=== PATIENT | female | born 1965 | race Hispanic/Latino ===

== ENCOUNTER 2019-12-26 08:34 | Day surgery (SDC) | payer BC ==
--- NOTE | 2019-12-23 08:46 | RAD REPORT ---
EXAM DESCRIPTION: RAD - Chest Pa And Lat (2 Views) - 12/23/2019 8:30 am CLINICAL HISTORY: pre op Chest pain. COMPARISON: CHEST PA AND LAT 2 VIEW dated 01/18/2013 FINDINGS: The lungs are clear. The heart is normal in size. No displaced fractures. IMPRESSION: No acute or concerning finding suspected.
[2019-12-23 11:15] LABS: Basophils % 0.8 % (0-1.3); Hematocrit 36.2 % (36.0-45.0); Lymphocytes % 29.9 % (15.3-44.8); MPV 8.1 fL (7.6-11.3); RBC Red Blood Cell Count 3.93 M/uL (3.86-4.86)
[2019-12-23 11:32] LABS: Potassium 4.4 mmol/L (3.5-5.1)
--- NOTE | 2019-12-25 07:52 | EKG ---
Test Date: 2019-12-23 Test Time: 08:34:15 Combination Window Installer: TG MEASUREMENT RESULTS: Intervals: Rate: 75 MO: 178 QRSD: 66 QT: 366 QTc: 408 [place]: P: 70 MO: 178 QRS: 52 T: 55 INTERPRETIVE STATEMENTS: Normal sinus rhythm Septal infarct, age undetermined Abnormal ECG Compared to ECG 07/30/1999 08:10:00 Myocardial infarct finding now present Electronically Signed On 12-25-19 07:49:47 CDT by Jason Ambrosio
[2019-12-26] MEDS ORDERED: CEFAZOLIN/SWI 1gm 1 GM/10 ML SYR ONE (10:11)
[2019-12-26] MEDS ORDERED: propofoL 200 MG/20 ML VIAL IV ONE (10:23)
[2019-12-26] MEDS ORDERED: LIDOCAINE 1% MPF 5 ML VIAL ONE (10:23)
[2019-12-26] MEDS ORDERED: FENTANYL CITR 100 MCG/2 ML ONE (10:23)
[2019-12-26] MEDS ORDERED: MIDAZOLAM HCL 2 MG/2 ML INJ ONE (10:23)
[2019-12-26] MEDS ORDERED: KETOROLAC 30 MG/ML INJ ONE (10:41)
[2019-12-26] MEDS ORDERED: dexAMETHasone 10 MG/ML VIAL ONE (10:41)
[2019-12-26] MEDS ORDERED: ONDANSETRON 4 MG/2 ML VIAL ONE (10:45)
[2019-12-26] MEDS ORDERED: Ringers Lactate 1,000 ML IV ONE (11:02)
[2019-12-26] MEDS ORDERED: CODEINE 30MG/APAP 300MG TAB ONE (12:54)
[2019-12-26 14:04] VITALS: BP 103/61; TEMP 97.7; O2SAT 100
[2019-12-26 14:10] LABS: Specific Gravity 1.025 (1.005-1.030)
--- NOTE | 2019-12-26 21:43 | OP ---
Date of Procedure: 12/26/2019 Surgeon: Julian Ladd MD Preoperative Diagnosis: Tender left axillary mass. Postoperative Diagnosis: Tender left axillary mass. Procedure: Excisional biopsy of tender left axillary mass, needle localized. Anesthesia: General plus local. Indications: This is a case of a 54-year-old patient with a tender actually mass. The margins canno t be clearly defined, so we asked the children's nursery assistant from the radiologist. This morning, she went under u ltrasound guidance and have localization of the mass in concern by the radiologist. The patient was brought to the OR protecting the needle all time. The benefits, alternatives, and risks of excisiona l biopsy of axillary mass were fully explained to the patient which include, but not limited to infec tion, bleeding, damage to adjacent structures, anesthesia complication, nonhealing wound, ME, and autumn n . She also understands this may not relieve the symptoms. She might need more than one surgi breanna intervention. She understood and signed a consent. Procedure In Detail: Like I mentioned before, the patient came this morning to the Radiology suite, from there taken to recovery room, protecting the needle all time, and then the patient was brought t o the operating room, placed supine position, anesthesia was done without complication. Left axillar y area was prepped and draped in a sterile fashion making sure the needle remains intact. At that mo ment, I proceeded to carefully after time-out was done make an incision on the left axillary region. Incision was carried down to subcutaneous tissue. We held the needle and the needle guidewire and t he mass with an Allis, and then we proceeded to remove the lump that this is delineating, which is co nfirmed, they palpated one too. The area was irrigated. Hemostasis was obtained. Then, we closed t his with subcutaneous 3-0 chromic in the layers and then skin with anais. Sponge counts and instru ment counts were correct. The patient tolerated the procedure well. The specimen with needle was se nt to the pathologist. The patient was sent to Recovery in stable condition. Disposition: Home. Activity: As tolerated. No heavy lifting. Plan: Follow up in my office in 1 week. Call for appointment [phone]. Keep area dry for 48 hours, then may shower. Keep anais intact. May use some triple antibiotics after that. Medications: Bactrim DS p.o. b.i.d. and Tylenol No. 3 q.4 hours p.r.n. pain. NADIA/ERIKA Voice ID: [id number] Report ID: [id number]
--- NOTE | 2019-12-27 12:44 | RAD REPORT ---
EXAM DESCRIPTION: US - Brst,Preop NL Wire Init w/Guid - 12/26/2019 1:58 pm CLINICAL HISTORY: N Left axillary palpable lesion. Preoperative wire localization COMPARISON: BREAST/AXILLA, COMPLETE dated 05/02/2019 FINDINGS: Preoperative diagnosis: 2 cm palpable lesion left axilla.. Post operative diagnosis: Same. Conscious Sedation: None Fluoroscopy time: None Contrast used: None Estimated blood loss: Minimal The left axilla was prepped and draped in the usual sterile fashion. 1% lidocaine was infiltrated int o the subcutaneous tissues for local anesthesia. Real time ultrasound scanning of the left axilla dem onstrated 2 cm hypoechoic palpable lesion. Under ultrasound guidance, preoperative Kopan's hook wire was placed into the lesion. There were no complications. Procedure was discussed with Dr. Ladd. IMPRESSION: Successful preoperative wire localization of palpable lesion left axilla.
== END 2019-12-26 13:25 | disposition home or self-care (01) ==
LOC: OR 08:34
PROVIDERS: ATTEND Surgery
PROC: 0JBF0ZX Excision of Left Upper Arm Subcutaneous Tissue and Fascia, Open Approach, Diagnostic (ICD-10-PCS; principal; 2019-12-26 10:15)
DX: R22.2 Localized swelling, mass and lump, trunk (principal)
CPT/HCPCS: 93005; 85025; 80048; 36415; 84703; 81025; 88304; 71046; 19285; 11403; 12032; U0002; J2704; J2250; J3010; J1100; J0690; J7120; J2405; 88305

== ENCOUNTER → 2023-06-23 | Emergency (ER) | payer BC ==
[~2023-06-23] MED LIST: MECLIZINE HCL 12.5 MG TAB ONE
--- OUTSIDE RECORDS SUMMARY | 2023-06-23 15:14 | XMS REPORT | Continuity of Care Document ---
Author Name Unknown Address [address] [facility] [address] th[address] Address [address] [facility] [address] [place] [address] Care Team Providers Care Project Estimator Name Role Phone [email or web address] Attending Clinician GAYATRI Gottlieb Attending Clinician ZENON Oshea Attending Clinician Unavailable [email or web address] Admitting Clinician Reynaldo cervantes Payers Payer Name Policy Type Policy Number Effective Date Expirati on Date Source [facility] FED [employer] [id number] 1995 00:00:00 Allergies, Adverse Reactions, Alerts Allergy Name Allergy Type Status Severity Reaction(s) Onset Date Inactive Date Treating Clinician Comments Source NO KNOWN ALLERGIE S Drug Class Active [facility] Encounters Start Date/Time End Date/Time Encounter Type Admission Type Attending Clinicians Care Facility Care Department Encounter ID Source 2023-03-17 00:00:00 2023-03-17 00:00:00 Outpatient [email or web address] [email or web address] PRIV PRIV [id number] [facility] 2023-03-16 00:00:00 2023-03-16 00:00:00 Outpatient [email or web address] PRIV PRIV [id number] [facility] 2020-05-17 15:00:00 2020-05-17 15:00:00 Outpatient GAYATRI CRUZ [facility] [id number] [facility] 2020-05-17 15:00:00 2020-05-17 15:00:00 Outpatient GAYATRI CRUZ [facility] [id number] [facility] 2020-04-14 18:40:00 2020-04-14 18:40:00 Outpatient ZENON DAVIDSON [facility] [id number] [facility]
[2023-06-23 17:36] LABS: Absolute Lymphocytes (CBC) 1.9 K/uL (0.7-4.9); Hematocrit 36.7 % (36.0-45.0); Lymphocytes % 28.9 % (15.3-44.8); MCV 90.2 fL (80-100); MPV 7.3 fL (7.6-11.3); Platelets 290 thou/uL (152-406); RBC Red Blood Cell Count 4.07 M/uL (3.86-4.86)
[2023-06-23 17:45] LABS: Potassium 3.7 mEq/L (3.5-5.1)
--- NOTE | 2023-06-23 19:02 | RAD REPORT ---
EXAM DESCRIPTION: MRI - Brain Wo Cont - 06/23/2023 6:49 pm CLINICAL HISTORY: DIZZINESS Headache, drowsiness, CVA COMPARISON: <Comparisons> TECHNIQUE: Multi-sequence, multiplanar MR imaging of the brain was performed without contrast. FINDINGS: No intracranial hemorrhage, hydrocephalus or extra-axial fluid collections.Mild T2 and FLA IR hyperintensities in the frontal region subcortical region bilaterally. No edema or shift of midlin e structures. No findings to suspect brain mass. DWI is negative for acute CVA. Midline structures are normally formed. Mastoid air cells and paranasal sinuses are clear. IMPRESSION: Negative for acute CVA or other acute intracranial process. Mild T2 and FLAIR hyperintensities in the frontal subcortical region bilaterally. This is nonspecific but has been described in migraine headaches.
--- NOTE | 2023-06-23 19:32 | EDPHYS ---
Physician Documentation [facility] Name: Jasmina Ladd Age: 58 yrs Sex: Female : 1965 Arrival Date: 06/23/2023 Time: 15:11 Bed 13 Private MD: ED Physician Garrett Ruano HPI: 06/23 19:18 This 58 yrs old Female presents to ER via Ambulatory with complaints of kdr Dizziness, Headache. 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 This kdr morning she awoke and noted that she was slightly dizzy but tried not to let it bother her. 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 During this time she felt like she had a near syncopal episode. The patient states that this has been unlike her prior anxiety exacerbations. But otherwise she has been in her usual state of health. Patient is not acute the ill-appearing or unstable on initial presentation. Onset: The symptoms/episode began/occurred this morning. Severity of symptoms: At their worst the symptoms were mild moderate just prior to arrival, in the emergency department the symptoms have improved moderately. The patient has not experienced similar symptoms in the past. The patient has been recently seen by a physician: the patient's primary care provider, Patient has seen a neurologist recently for other episodes of dizziness. She is also had an MRI of her brain. I reviewed the MRI with the current radiologist (Dr. Joseph) who reported that there were no significant objective findings. There was some possible old infarct areas but nothing that he could determine due to the poor quality of the study.. Historical: - Allergies: 15:24 Tamiflu; ap3 - Home Meds: 15:24 methimazole 5 mg Oral tablet 1 tab thursday, thursday, thursday [Active]; ap3 - PMHx: 15:24 Migraine; chronic headache; Hyperthyroidism; ap3 15:27 Anxiety; ap3 - Immunization history:: Client reports receiving the 1st dose of the Covid vaccine, Flu vaccine is not up to date. - Social history:: Smoking status: Patient denies any tobacco usage or history of. ROS: 19:18 Constitutional: Negative for fever, chills, and weight loss, Eyes: Negative for injury, kdr pain, redness, and discharge, ENT: Negative for injury, pain, and discharge, Neck: Negative for injury, pain, and swelling, Cardiovascular: Negative for chest pain, palpitations, and edema, Respiratory: Negative for shortness of breath, cough, wheezing, and pleuritic chest pain, Abdomen/GI: Negative for abdominal pain, nausea, vomiting, diarrhea, and constipation, Back: Negative for injury and pain, : Negative for injury, bleeding, discharge, and swelling, MS/Extremity: Negative for injury and deformity, Skin: Negative for injury, rash, and discoloration, Psych: Negative for depression, anxiety, suicide ideation, homicidal ideation, and hallucinations, Allergy/Immunology: Negative for hives, rash, and allergies, Endocrine: Negative for neck swelling, polydipsia, polyuria, polyphagia, and marked weight changes, Hematologic/Lymphatic: Negative for swollen nodes, abnormal bleeding, and unusual bruising, 19:18 Neuro: Positive for dizziness, visual changes, weakness, Exam: 19:18 Constitutional: This is a well developed, well nourished patient who is awake, alert, kdr and in no acute distress. Head/Face: Normocephalic, atraumatic. Eyes: Pupils equal round and reactive to light, extra-ocular motions intact. Lids and lashes normal. Conjunctiva and sclera are non-icteric and not injected. Cornea within normal limits. Periorbital areas with no swelling, redness, or edema. Neck: Trachea midline, no thyromegaly or masses palpated, and no cervical lymphadenopathy. Supple, full range of motion without nuchal rigidity, or vertebral point tenderness. No Meningismus. Chest/axilla: Normal chest wall appearance and motion. Nontender with no deformity. No lesions are appreciated. Abdomen/GI: Soft, non-tender, with normal bowel sounds. No distension or tympany. No guarding or rebound. No evidence of tenderness throughout. 19:18 Neuro: Orientation: is normal, Mentation: is normal, Memory: is normal, Motor: moves all fours, Sensation: no obvious gross deficits, Gait: is steady, Vital Signs: 15:22 BP 142 / 79; Pulse 72; Resp 17; Temp 97.2; Pulse Ox 100% ; Weight 64.86 kg; Height 5 ap3 ft. 3 in. ; Pain 8/10; 19:00 BP 118 / 72; Pulse 61; Resp 16 S; Pulse Ox 99% on R/A; bp 20:00 BP 116 / 74; Pulse 65; Resp 16 S; Pulse Ox 100% on R/A; bp 15:22 Body Mass Index 25.33 (64.86 kg, 160.02 cm) ap3 15:22 Pain Scale: Adult ap3 MDM: 19:32 Patient medically screened. kdr 20:50 Data reviewed: vital signs, nurses notes. kdr 06/23 16:51 Order name: CBC with Diff; Complete Time: 18:33 kdr 06/23 16:51 Order name: Chem 7; Complete Time: 18:33 kdr 06/23 16:51 Order name: MRI - Brain Wo Cont; Complete Time: 19:23 kdr Administered Medications: 19:31 CANCELLED (Patient Refused): [id number] mg PO once kdr 19:31 CANCELLED (Patient Refused): [id number] mg PO once kdr 20:05 Drug: Meclizine PO 25 mg PO once Route: PO; bp 20:05 Follow up: Response: No adverse reaction bp Disposition Summary: 06/23/23 19:32 Discharge Ordered Notes: Location: Home kdr Problem: new kdr Symptoms: have improved kdr Condition: Stable kdr Diagnosis - Dizziness and giddiness kdr Followup: kdr - With: Private Physician - When: 2 - 3 days - Reason: If symptoms return, Further diagnostic work-up, Recheck today's complaints, Continuance of care, Re-evaluation by your physician Followup: kdr - With: Willis Ramos MD - When: 2 - 3 days - Reason: If symptoms return, Further diagnostic work-up, Recheck today's complaints, Continuance of care, Re-evaluation by your physician Discharge Instructions: - Discharge Summary Sheet kdr - Vertigo, [id number] kdr - Dizziness, [id number] kdr Forms: - Medication Reconciliation Form kdr - Thank You Letter kdr - Patient Portal Instructions kdr - Leadership Thank You Letter kdr Prescriptions: - Meclizine 25 mg Oral Tablet - take 1 tablet ORAL route every 8 hours As needed; 30 tablet; Refills: 0, kdr Product Selection Permitted Signatures: Dispatcher [employer] Garrett Acuna MD MD kdr Mario Cruz RN RN bp Hien Rodriguez RN RN ap3 Corrections: (The following items were deleted from the chart) 19:24 Meclizine PO 25 mg PO once ordered. kdr kdr 19:24 Ketorolac PO 10 mg PO once ordered. kdr kdr
--- NOTE | 2023-06-23 19:32 | ER ---
Nurse's Notes [facility] Name: Jasmina Ladd Age: 58 yrs Sex: Female : 1965 Arrival Date: 06/23/2023 Time: 15:11 Bed 13 Private MD: Diagnosis: Dizziness and giddiness Presentation: 06/23 15:22 Chief complaint: Patient states: she has been having headaches since February 2023, and ap3 recently saw her neurologist for a "brain scan". patient states she works from home and started feeling dizzy this morning and then felt like she "went blank". This occurred at approx 1000 AM. Coronavirus screen: At this time, the client does not indicate any symptoms associated with coronavirus-19. Ebola Screen: No symptoms or risks identified at this time. Initial Sepsis Screen: Does the patient meet any 2 criteria? No. Patient's initial sepsis screen is negative. Does the patient have a suspected source of infection? No. Patient's initial sepsis screen is negative. Risk Assessment: Do you want to hurt yourself or someone else? Patient reports no desire to harm self or others. Onset of symptoms is unknown. 15:22 Method Of Arrival: Ambulatory ap3 15:22 Acuity: RAMSES 3 ap3 Triage Assessment: 15:26 Headache History: The patient has had previous headaches and this one is similar to ap3 previous episodes. General: Appears in no apparent distress. Behavior is calm, cooperative, appropriate for age. Pain: Complains of pain in head Pain currently is 8 out of 10 on a pain scale. Pain began chronically since february Is chronic, Also complains of dizziness. Neuro: Reports dizziness, since 10:00 this morning. Cardiovascular: Patient's skin is warm and dry. Respiratory: Airway is patent Respiratory effort is even, unlabored, Respiratory pattern is regular, symmetrical. Historical: - Allergies: 15:24 Tamiflu; ap3 - Home Meds: 15:24 methimazole 5 mg Oral tablet 1 tab thursday, thursday, thursday [Active]; ap3 - PMHx: 15:24 Migraine; chronic headache; Hyperthyroidism; ap3 15:27 Anxiety; ap3 - Immunization history:: Client reports receiving the 1st dose of the Covid vaccine, Flu vaccine is not up to date. - Social history:: Smoking status: Patient denies any tobacco usage or history of. Screenin:27 Abuse screen: Denies threats or abuse. Nutritional screening: No deficits noted. ap3 Tuberculosis screening: No symptoms or risk factors identified. 19:00 [facility] ED Fall Risk Assessment (Adult) History of falling in the last 3 months, bp including since admission No falls in past 3 months (0 pts) Confusion or Disorientation No (0 pts) Intoxicated or Sedated No (0 pts) Impaired Gait Yes (1 pt) Mobility Assist Device Used No (0 pt) Altered Elimination No (0 pt) Score/Fall Risk Level 0 - 2 = Low Risk Oriented to surroundings, Maintained a safe environment, Educated pt \\T\\ family on fall prevention, incl call for assistance when getting out of bed. Assessment: 15:30 General: SEE TRIAGE NOTE. bp 19:00 General: Appears in no apparent distress. comfortable, Behavior is calm, cooperative. bp 19:00 Pain: Denies pain. Neuro: Estes Agitation-Sedation Scale (RASS): 0 - Alert and Calm bp Level of Consciousness is awake, alert, obeys commands, Oriented to person, place, time, situation. Neuro: Reports dizziness. Cardiovascular: Capillary refill < 3 seconds Clubbing of nail beds is absent JVD is absent Patient's skin is warm and dry. Respiratory: Airway is patent Trachea midline Respiratory effort is even, unlabored, Respiratory pattern is regular, symmetrical. GI: Abdomen is flat, non-distended, Bowel sounds present X 4 quads. : No deficits noted. No signs and/or symptoms were reported regarding the genitourinary system. EENT: No deficits noted. No signs and/or symptoms were reported regarding the EENT system. Derm: Skin is intact, is healthy with good turgor, Skin is dry, Skin is normal, Skin temperature is warm. Musculoskeletal: Circulation, motion, and sensation intact. Range of motion: intact in all extremities. 20:07 Reassessment: Patient appears in no apparent distress at this time. Patient and/or bp family updated on plan of care and expected duration. Pain level reassessed. Patient is alert, oriented x 3, equal unlabored respirations, skin warm/dry/pink. Vital Signs: 15:22 BP 142 / 79; Pulse 72; Resp 17; Temp 97.2; Pulse Ox 100% ; Weight 64.86 kg; Height 5 ap3 ft. 3 in. ; Pain 8/10; 19:00 BP 118 / 72; Pulse 61; Resp 16 S; Pulse Ox 99% on R/A; bp 20:00 BP 116 / 74; Pulse 65; Resp 16 S; Pulse Ox 100% on R/A; bp 15:22 Body Mass Index 25.33 (64.86 kg, 160.02 cm) ap3 15:22 Pain Scale: Adult ap3 ED Course: 15:14 Patient arrived in ED. kj1 15:24 Triage completed. ap3 15:27 Arm band placed on left wrist. ap3 15:30 Garrett Ruano MD is Attending Physician. kdr 15:30 Patient has correct armband on for positive identification. bp 16:12 Mario Cruz, RN is Primary Nurse. bp 17:24 Inserted saline lock: 22 gauge in right forearm, using aseptic technique. Blood bp collected. 18:42 MRI - Brain Wo Cont In Process Unspecified. EDMS 19:31 Willis Ramos MD is Referral Physician. kdr 20:08 Provided Education on: Discharge Instructions. bp 20:08 No provider procedures requiring assistance completed. IV discontinued, intact, bp bleeding controlled, No redness/swelling at site. Pressure dressing applied. Administered Medications: 19:31 CANCELLED (Patient Refused): [id number] mg PO once kdr 19:31 CANCELLED (Patient Refused): [id number] mg PO once kdr 20:05 Drug: Meclizine PO 25 mg PO once Route: PO; bp 20:05 Follow up: Response: No adverse reaction bp Medication: 20:09 VIS not applicable for this client. bp Outcome: 19:32 Discharge ordered by . kdr 20:08 Discharged to home ambulatory, with family, bp 20:08 Condition: stable 20:08 Discharge instructions given to patient, Instructed on discharge instructions, follow up and referral plans. medication usage, Demonstrated understanding of instructions, follow-up care, medications, Prescriptions given X 1, 20:09 Patient left the ED. bp Signatures: Dispatcher [employer] EDMS Garrett Ruano MD MD [facility] Mario Cruz, RN RN Hien Evans RN RN 3 Mirna Pierre [email or web address] Corrections: (The following items were deleted from the chart) 15:27 15:22 Chief complaint: Patient states: she has been having headaches since February, and recently saw her neurologist for a "brain scan". patient states she works from home and started feeling dizzy this morning and then felt like she "went blank". This occurred at approx 1030 AM.
== END ==
LOC: ER 15:11
DX: R42 Dizziness and giddiness (principal); R53.1 Weakness; Z88.8 Allergy status to other drugs, medicaments and biological substances
CPT/HCPCS: 85025; 80048; 36415; 70551; J8597

== ENCOUNTER → 2023-10-27 | Day surgery (SDC) | payer BC ==
--- NOTE | 2023-10-27 11:08 | RAD REPORT ---
EXAM DESCRIPTION: US - Breast Core BX w/US Guidance - 10/27/2023 10:13 am CLINICAL HISTORY: ICD R92.8 N63.24 COMPARISON: ultrasound September 28, 2023 TECHNIQUE: The risks, benefits alternatives to the procedure were explained to the patient and infor med consent obtained. Skin and deeper tissues anesthetized with lidocaine. Under sonographic guidance, two 14 gauge vacuum assisted core biopsies of the mass within the lower l eft breast obtained. 2 centimeter specimens taken. Tissue given to pathology. Subsequently a localizing clip was placed into the mass. Patient experienced no immediate complication IMPRESSION: Vacuum assisted core biopsies of the left breast mass
== END ==
LOC: DS 09:34
PROVIDERS: ATTEND Surgery
DX: N60.32 Fibrosclerosis of left breast (principal)
CPT/HCPCS: 19083; 88305